=== PATIENT | male | born 1945 | race Caucasian/White ===

== ENCOUNTER → 2016-11-20 | Outpatient (CLI) | payer OTHER | LOC: BMCIMAGING 09:35 | PROVIDERS: ATTEND Internal Medicine Endocrinology, Diabetes & Metabolism | DX: Z13.820 Encounter for screening for osteoporosis (principal); M81.0 Age-related osteoporosis without current pathological fracture ==

== ENCOUNTER → 2017-07-11 | Outpatient (CLI) | payer OTHER | LOC: BMCIMAGING 13:11 | PROVIDERS: ATTEND Internal Medicine | DX: R05 Cough (principal) ==

== ENCOUNTER 2017-07-21 12:52 | Emergency (ER) | payer OTHER ==
[2017-07-21 13:03] VITALS: RESP 17; TEMP 97.5; O2SAT 98
--- NOTE | 2017-07-21 13:15 | EDPHY ---
H & P Stated Complaint: fell running inj l ribs and l elbow/denies loc or neck pain Time Seen by Provider: 07/21/17 13:05 HPI/ROS: CHIEF COMPLAINT: Rib pain, left elbow pain following mechanical fall HISTORY OF PRESENT ILLNESS: Patient presents to the ED with complaints of mild left rib pain and moderate left elbow pain following a mechanical fall that occurred earlier today while running. The patient did not strike his head or lose consciousness. He is not anticoagulated. He denies any headache or cervical spine pain. He did sustain an abrasion to his left leg. He is able to ambulate without discomfort. He denies any low back pain. He denies any associated numbness or weakness. His symptoms are worsened with attempted movement. REVIEW OF SYSTEMS: A comprehensive 10 point review of systems is otherwise negative aside from elements mentioned in the history of present illness. Source: Patient Exam Limitations: No limitations - Personal History Current Tetanus/Diphtheria Vaccine: Yes - Medical/Surgical History Hx Asthma: No Hx Chronic Respiratory Disease: No Hx Diabetes: No Hx Cardiac Disease: Yes Hx Renal Disease: No Hx Cirrhosis: No Hx Alcoholism: No Hx HIV/AIDS: No Hx Splenectomy or Spleen Trauma: No Other PMH: osteoporosis/pre diabetic/htn - Social History Smoking Status: Never smoked - Physical Exam Exam: General Appearance: Alert, no distress Head: Atraumatic Eyes: Pupils equal, round, reactive ENT, Mouth: No hemotympanum, no oral trauma Neck: Nontender, trachea midline Respiratory: Minimal left rib tenderness, no subcutaneous emphysema, lungs clear to auscultation bilaterally Cardiovascular: Regular rate and rhythm Abdomen: Abdomen is soft and nontender, pelvis stable Skin: Abrasion left lower extremity Back: No midline T/L/S pain Extremities: Tenderness to palpation over the left olecranon, mild soft tissue swelling, no laceration Neurological: A&Ox3, normal motor function, normal sensory exam, GCS 15 Constitutional: Initial Vital Signs Temperature (C) 36.4 C 07/21/17 12:59 Heart Rate 73 07/21/17 12:59 Respiratory Rate 17 07/21/17 12:59 Blood Pressure 150/74 H 07/21/17 12:59 O2 Sat (%) 98 07/21/17 12:59 O2 Delivery Mode Room Air Allergies/Adverse Reactions: No Known Allergies Allergy (Unverified 12/30/17 12:57) Home Medications: Medication Instructions Recorded Htn Med 07/21/17 Hydrocodone/APAP 5/325 [Highland 1 - 2 each PO Q6 PRN #20 tab 07/21/17 5/325] Metformin HCl 07/21/17 Simvastatin 07/21/17 Medical Decision Making - Diagnostics Imaging Results: Imaging Impressions Elbow X-Ray 07/21/17 13:09 Impression: Complex fracture of the proximal ulna. Chest X-Ray 07/21/17 13:17 Impression: Nothing acute identified. ED Course/Re-evaluation: ED course: The patient presents the ED for evaluation of left elbow and chest wall pain following a fall while running. The patient arrived and was noted to be neurovascularly intact. The patient was taken for x-rays of his test and elbow which demonstrate a minimally displaced olecranon fracture without evidence of dislocation. Chest x-ray demonstrates no evidence of an obvious rib fracture or pneumothorax by my interpretation. The patient was placed in a posterior Ortho Glass splint. I re-evaluated the patient at 2:00 p.m.. He is neurologically intact. I have reviewed with him his x-ray findings. He will be referred to our on-call orthopedic surgeon for further evaluation of his elbow fracture. The patient is discharged home with customary fracture care aftercare instructions. He is provided a prescription for Highland. He is advised to ice the extremity frequently over the next several days. Differential Diagnosis: Differential diagnosis considered includes elbow fracture, dislocation, neurovascular injury, rib fracture, pneumothorax Departure - Departure Disposition: Home, Routine, Self-Care Clinical Impression: Olecranon fracture Condition: Good Instructions: Elbow Fracture (ED) Additional Instructions: 1. Wear splint until seen by Orthopedic surgery. 2. Please contact the orthopedic surgeon at [facility] for further evaluation of your fracture. 3. Ice 20-30 minutes at a time 4 to 5 times a day for the next several days. 4. Take Ibuprofen or Motrin 600 mg by mouth three times a day. 5. Highland as needed for severe pain Referrals: Brant Evans MD [Medical Doctor] - As per Instructions Prescriptions: Hydrocodone/APAP 5/325 [Highland 5/325] 1 - 2 each PO Q6 PRN #20 tab PRN Reason: for pain
[2017-07-21 14:49] VITALS: BP 141/74; PULSE 71
== END 2017-07-21 14:48 | disposition home or self-care (01) ==
DX: S52.022A Displaced fracture of olecranon process without intraarticular extension of left ulna, initial encounter for closed fracture (principal); I10 Essential (primary) hypertension; W18.39XA Other fall on same level, initial encounter; Y99.8 Other external cause status; Y93.02 Activity, running
CPT/HCPCS: 71010; 73080; 99284; A4565

== ENCOUNTER 2017-07-27 05:36 | Day surgery (SDC) | payer OTHER, MEDICARE ==
[~2017-07-27 05:36] MED LIST: ceFAZolin 2 GM/SWFI 2 GM/20 ML SYR IVP ONE
[2017-07-27] MEDS ORDERED: ceFAZolin 2 GM/SWFI 2 GM/20 ML SYR IVP ONE (05:53)
[2017-07-27] MEDS ORDERED: LR 1,000 ML IV ONE (05:54)
[2017-07-27 06:04] VITALS: PULSE 56
[2017-07-27] MEDS ORDERED: LIDOCAINE 1% 2 ML INJ ID PRN (06:14)
--- NOTE | 2017-07-27 06:54 | PDHPUP ---
History & Physical Update H&P update statement: This history and physical update is based on an assessment of the patient which was completed after admission or registration (within 24 hours), but prior to the surgery/procedure. H&P update: H&P reviewed & patient examined, no change in patient's condition since H&P completed
[2017-07-27] MEDS ORDERED: BUPIVACAINE 0.5% 30 ML SDV ONE (07:00)
[2017-07-27] MEDS ORDERED: MIDAZOLAM 2 MG/2 ML VIAL ONE (07:08)
[2017-07-27] MEDS ORDERED: MIDAZOLAM 2 MG/2 ML VIAL IVP ONE (07:13)
--- NOTE | 2017-07-27 07:14 | PDANEPAE ---
ANE History of Present Illness left distal radius fracture ANE Past Medical History - Cardiovascular History Hx Hypertension: Yes Hx Arrhythmias: No Hx Chest Pain: No Hx Coronary Artery / Peripheral Vascular Disease: No Hx CHF / Valvular Disease: No Hx Palpitations: No Cardiovascular History Comment: HX-MITRAL VALVE PROLAPSE. NO SOB. NO CP - Pulmonary History Hx COPD: No Hx Asthma/Reactive Airway Disease: No Hx Recent Upper Respiratory Infection: No Hx Oxygen in Use at Home: No Hx Sleep Apnea: No Sleep Apnea Screening Result - Last Documented: Negative Pulmonary History Comment: CHILDHOOD ASTHMA THROUGH 20s - Neurologic History Hx Cerebrovascular Accident: No Hx Seizures: No Hx Dementia: No - Endocrine History Hx Diabetes: No Endocrine History Comment: PRE-DIABETIC - Renal History Hx Renal Disorders: No - Liver History Hx Hepatic Disorders: No - Neurological & Psychiatric Hx Hx Neurological and Psychiatric Disorders: No - Cancer History Hx Cancer: No - Congenital Disorder History Hx Congenital Disorders: No - GI History Hx Gastrointestinal Disorders: Yes Gastrointestinal History Comment: POSS ACID REFLUX W/COUGH - Other Health History Other Health History: NEG - Chronic Pain History Chronic Pain: No - Surgical History Prior Surgeries: NASAL POLYPS. EYELID SURGERY. COLONOSCOPY ANE Review of Systems Review of Systems: - Exercise capacity METS (RN): 5 METS ANE Patient History - Allergies Allergies/Adverse Reactions: No Known Allergies Allergy (Unverified 07/21/17 12:57) - Home Medications Home Medications: Metformin HCl 07/21/17 [Last Taken 07/26/17] Simvastatin 07/21/17 [Last Taken 07/26/17] Amlodipine Besylate 07/26/17 [Last Taken 07/27/17 04:30] Herbals/Supplements -Info Only 07/26/17 [Last Taken 07/26/17] Lisinopril 07/26/17 [Last Taken 07/27/17 04:30] Omeprazole 07/26/17 [Last Taken 07/27/17 04:30] Prolia 07/26/17 [Last Taken 1 Month Ago ~06/26/17] Viagra 07/26/17 [Last Taken 07/20/17] - NPO status NPO Since - Liquids (Date): 07/27/17 NPO Since - Liquids (Time): 04:30 NPO Since - Solids (Date): 07/26/17 NPO Since - Solids (Time): 19:00 - Smoking Hx Smoking Status: Never smoked - Family Anes Hx Family Hx Anesthesia Complications: NEG ANE Labs/Vital Signs - Labs Result Diagrams: 07/27/17 06:35 - Vital Signs Blood Pressure: 149/68 Heart Rate: 56 Respiratory Rate: 16 O2 Sat (%): 96 Height: 177.8 cm Weight: 72.575 kg ANE Physical Exam - Airway Neck exam: FROM Mallampati Score: Class 2 Mouth exam: normal dental/mouth exam - Pulmonary Pulmonary: no respiratory distress - Cardiovascular Cardiovascular: regular rate and rhythym - ASA Status ASA Status: II ANE Anesthesia Plan Anesthesia Plan: general endotracheal anesthesia, GA w LMA Regional Anesthesia: supraclavicular BP NB
[2017-07-27] MEDS ORDERED: PROPOFOL 200 MG/20 ML VIAL ONE ×2 (07:16→07:17)
[2017-07-27] MEDS ORDERED: fentaNYL 100 MCG/2 ML INJ ONE ×3 (07:16→11:02)
[2017-07-27] MEDS ORDERED: ROPIVACAINE HCL 150 MG/30 ML INJ ONE (07:16)
[2017-07-27] MEDS ORDERED: NALOXONE HCL 0.4 MG/ML INJ IVP PRN (08:09)
[2017-07-27] MEDS ORDERED: OXYCODONE/APAP 5/325 TAB PO PRN (08:09)
[2017-07-27] MEDS ORDERED: PROMETHAZINE HCL 25 MG/ML INJ IVP PRN (08:09)
[2017-07-27] MEDS ORDERED: ONDANSETRON 4 MG/2 ML VIAL IVP PRN (08:09)
[2017-07-27] MEDS ORDERED: HYDROmorphONE/DILAUDID 1 MG/ML INJ IVP PRN (08:09)
[2017-07-27] MEDS ORDERED: DEXAMETHASONE 4 MG/ML VIAL ONE (10:30)
[2017-07-27] MEDS ORDERED: epHEDrine SULFATE 10 MG/ML SYR ONE (10:30)
[2017-07-27] MEDS ORDERED: ONDANSETRON 4 MG/2 ML VIAL ONE (10:30)
--- NOTE | 2017-07-27 10:38 | POSTANESTH ---
Post Anesthetic Evaluation Cardiovascular Status: Normal, Stable Respiratory Status: Normal, Stable Level of Consciousness/Mental Status: Can Participate in Eval Pain Control: Adequate, Prn Tx Ordered Nausea/Vomiting Control: Adequate, Prn Tx Ordered Complications Possibly Related to Anesthesia: None Noted
[2017-07-27] MEDS: fentaNYL 100 MCG/2 ML INJ IVP PRN ×2 (11:05→11:20)
[2017-07-27] MEDS ORDERED: OXYCODONE/APAP 5/325 TAB ONE (12:00)
[2017-07-27 12:38] VITALS: BP 124/62; RESP 16; TEMP 97.5; O2SAT 96
--- NOTE | 2017-07-29 13:07 | GOP ---
[f rep st] OPERATIVE REPORT DATE OF OPERATION: 07/27/2017 SURGEON: Brant Evans MD ANESTHESIA: General with a supraclavicular block. PREOPERATIVE DIAGNOSIS: Left olecranon fracture. POSTOPERATIVE DIAGNOSIS: Left olecranon fracture. PROCEDURE PERFORMED: Left olecranon open reduction, internal fixation. FINDINGS: ESTIMATED BLOOD LOSS: 15 cc. INDICATIONS: This patient presented to my clinic this week after a fall onto his left elbow several days prior. He tripped and fell while driving. He was seen at an urgent care facility. X-rays were taken. The x-rays were reviewed by me. The x-rays showed a displaced olecranon fracture with a butterfly fragment. This is an unstable type of olecranon fracture. Operative treatment is indicated. The risks and benefits of operative versus nonoperative were discussed with the patient. Risks of surgery include pain, bleeding, infection , damage to the surrounding structures, stiffness, nonunion, delayed union, wound healing complications, need for further surgeries including implant removal, posttraumatic arthritis. He understood the risks and wished to proceed. DESCRIPTION OF PROCEDURE: The patient was seen in the preoperative holding area. He was given the opportunity to ask more questions. All of his questions were answered. Consent was signed. Surgical site was marked. He was then taken to the operative suite. Care was taken to transfer the patient to the operating room table. General anesthesia was induced by the anesthesia team. A time-out was called including surgical and anesthesia teams confirming the surgical site and procedure to be performed. 2 g of Ancef were given prior to incision. After induction of anesthesia, the patient was carefully placed into the lateral decubitus position with the left side up. Great care was taken to ensure that all bony prominences were padded in the lateral decubitus position. An axillary roll was used. The left arm was placed on a foam bump. The left upper extremity was prepped and draped in the usual sterile fashion. A sterile tourniquet was placed. An Esmarch was used to examine the left upper extremity. A tourniquet was inflated to 250 mmHg. A standard curvilinear incision was made over the olecranon for a standard posterior approach to the olecranon. This was curved radially, carefully dissected down through the skin. There were small superficial cutaneous nerves that were preserved, dissected down to the level of the fascia between the ECU and FCU. This was split to visualize the subcutaneous border of the ulna. The triceps tendon was visualized. The fracture was visualized. The periosteum was removed for 2 or 3 mm along the fracture site to visualize it. The fracture was booked open. The area was irrigated to clean it out. Provisional reduction was obtained with a pointed large yeager clamp. Another K-wire was used to hold the smaller comminuted fragment attached to the triceps tendon in place. After reduction was obtained, a plate was used. The plate had 2 holes in the shaft. This plate was placed provisionally, check under fluoroscopy, held with K-wires. Then, the plate was sucked down to the bone with 3.5 cortical screw. The position of the plate was checked in the reduction. When we were happy with the reduction, the proximal locking screws were placed. These were placed to ensure that they were out of the joint. Then 2 more distal shaft locking screws were placed. Screw length was checked under fluoroscopy and these screws were placed. The wound was irrigated copiously. Prior to closing, a 5- 0 FiberWire was placed through the tricep tendon and then through a plate hole in a tension band-type fashion to supplement fixation. At this point, the fascia was closed over the plate and the tendon split was closed with Vicryl as well. The _skin was then closed in layers, the final layer being a running 3-0 nylon. A dressing was applied sterilely. At this point, I noticed that the patient did not have full rotation of the forearm. An x-ray was taken, several different oblique views were taken, which showed one of the screws proud in the PRUJ. This was likely interfering with rotation. The arm was then very carefully reprepped in a sterile fashion. Antibiotics were redosed. The distal aspect of the wound was opened. The screw that was long was removed and it was replaced with a screw that was much shorter. At this point, the patient had smooth full rotation of the forearm. Final x-rays were then again taken confirming the anatomic reduction and correct screw length placement. The closure was then again performed in the same fashion. A sterile dressing was applied. A posterior slab splint was applied in 90 degrees. He was awakened from general anesthesia in stable condition and taken to the PACU in stable condition. IMPLANTS USED: Arlettie [id number] variable angle stainless steel olecranon plating system. POSTOPERATIVE CONDITION: Stable. POSTOPERATIVE PLAN: The patient will follow up in clinic in 2 weeks for removal of the sutures. An appointment with a hand therapist will be made for about a week to replace his splint with a removable splint at 90 degrees within the allowed gentle range of motion. /[id number]/MODL MTDD
== END 2017-07-27 12:39 | disposition home or self-care (01) ==
LOC: FSGY 05:36
PROVIDERS: ATTEND Orthopaedic Surgery Hand Surgery
PROC: 0PSL04Z Reposition Left Ulna with Internal Fixation Device, Open Approach (ICD-10-PCS; principal; 2017-07-27 07:15)
DX: S52.022A Displaced fracture of olecranon process without intraarticular extension of left ulna, initial encounter for closed fracture (principal); I34.1 Nonrheumatic mitral (valve) prolapse; E78.5 Hyperlipidemia, unspecified; M81.0 Age-related osteoporosis without current pathological fracture; I10 Essential (primary) hypertension; R73.03 Prediabetes; W01.0XXA Fall on same level from slipping, tripping and stumbling without subsequent striking against object, initial encounter; Y93.02 Activity, running; Y92.480 Sidewalk as the place of occurrence of the external cause; Y99.8 Other external cause status; Z82.49 Family history of ischemic heart disease and other diseases of the circulatory system; Z82.62 Family history of osteoporosis
CPT/HCPCS: C1713; J0690; J1100; J2250; J2405; J2704; J2795; J3010

== ENCOUNTER → 2017-08-09 | Outpatient (CLI) | payer OTHER, MEDICARE | LOC: BMCIMAGING 08:32 | PROVIDERS: ATTEND Orthopaedic Surgery Hand Surgery | DX: S52.025D Nondisplaced fracture of olecranon process without intraarticular extension of left ulna, subsequent encounter for closed fracture with routine healing (principal) ==

== ENCOUNTER → 2017-09-12 | Outpatient (CLI) | payer OTHER, MEDICARE | LOC: BMCIMAGING 09:54 | PROVIDERS: ATTEND Orthopaedic Surgery Hand Surgery | DX: S52.022D Displaced fracture of olecranon process without intraarticular extension of left ulna, subsequent encounter for closed fracture with routine healing (principal) ==

== ENCOUNTER 2018-11-06 12:08 | Day surgery (SDC) | payer OTHER ==
[2018-11-06] MEDS ORDERED: NS 500 ML IV ONE (12:14)
[2018-11-06] MEDS ORDERED: fentaNYL 100 MCG/2 ML INJ IVP ONE (12:14)
[2018-11-06] MEDS ORDERED: MIDAZOLAM 2 MG/2 ML VIAL IVP ONE (12:14)
[2018-11-06] MEDS ORDERED: BENZOCAINE UNIT DOSE SPRAY HURRICAINE MM ONE (12:14)
--- NOTE | 2018-11-06 13:22 | PDANEPAE ---
ANE History of Present Illness here for NADYA/CV ANE Past Medical History - Cardiovascular History Hx Hypertension: Yes Hx Arrhythmias: No Hx Chest Pain: No Hx Coronary Artery / Peripheral Vascular Disease: No Hx CHF / Valvular Disease: No Hx Palpitations: No Cardiovascular History Comment: HX-MITRAL VALVE PROLAPSE. NO SOB. NO CP - Pulmonary History Hx COPD: No Hx Asthma/Reactive Airway Disease: No Hx Recent Upper Respiratory Infection: No Hx Oxygen in Use at Home: No Hx Sleep Apnea: No Pulmonary History Comment: CHILDHOOD ASTHMA THROUGH 20s - Neurologic History Hx Cerebrovascular Accident: No Hx Seizures: No Hx Dementia: No - Endocrine History Hx Diabetes: No Endocrine History Comment: PRE-DIABETIC - Renal History Hx Renal Disorders: No - Liver History Hx Hepatic Disorders: No - Neurological & Psychiatric Hx Hx Neurological and Psychiatric Disorders: No - Cancer History Hx Cancer: No - Congenital Disorder History Hx Congenital Disorders: No - GI History Hx Gastrointestinal Disorders: Yes Gastrointestinal History Comment: POSS ACID REFLUX W/COUGH - Other Health History Other Health History: NEG - Chronic Pain History Chronic Pain: No - Surgical History Prior Surgeries: NASAL POLYPS. EYELID SURGERY. COLONOSCOPY ANE Review of Systems Review of systems is: negative Review of Systems: - Exercise capacity Exercise capacity: >=4 METS ANE Patient History - Allergies Allergies/Adverse Reactions: No Known Allergies Allergy (Unverified 07/21/17 12:57) - Home Medications Home medications: home medication list seen and reviewed Home Medications: Metformin HCl 07/21/17 [Last Taken 11/05/18 07:00] Simvastatin 07/21/17 [Last Taken 11/05/18 21:00] Amlodipine Besylate 5 mg PO DAILY 07/26/17 [Last Taken 11/06/18 07:00] Herbals/Supplements -Info Only 07/26/17 [Last Taken 11/06/18 07:00] Lisinopril 10 mg PO DAILY 07/26/17 [Last Taken 11/06/18 07:00] Prolia 07/26/17 [Last Taken 1 Month Ago ~06/26/17] Viagra 07/26/17 [Last Taken 07/20/17] Aspirin 81 mg PO DAILY 11/06/18 [Last Taken 11/05/18 07:00] - NPO status NPO Status: no food or drink >8 hours - Smoking Hx Smoking Status: Never smoked - Family Anes Hx Family Hx Anesthesia Complications: NEG ANE Labs/Vital Signs - Vital Signs Vital Signs: reviewed preoperatively; see RN documention for details Height: 178 cm Weight: 72.6 kg ANE Physical Exam - Airway Neck exam: FROM Mallampati Score: Class 1 Mouth exam: normal dental/mouth exam - Pulmonary Pulmonary: no respiratory distress - Cardiovascular Cardiovascular: regular rate and rhythym - ASA Status ASA Status: II ANE Anesthesia Plan Anesthesia Plan: GA with mask
[2018-11-06] MEDS ORDERED: PROPOFOL/EMULSION 500 MG/50 ML BOTTLE IV ONE (13:41)
--- NOTE | 2018-11-09 03:24 | CPR ---
[f rep st] NONINVASIVE CARDIAC PROCEDURE REPORT DATE OF PROCEDURE: 11/06/2018 PROCEDURE PERFORMED: Transesophageal echocardiogram. INDICATIONS FOR PROCEDURE: Mitral valve prolapse and mitral regurgitation. DESCRIPTION OF PROCEDURE: After informed consent was obtained for sedation with anesthesia as well a s transesophageal echocardiogram, the patient was brought to the cardiovascular lab where he was syd carlos with propofol. Bite block was in place. NADYA probe was passed without incident. NADYA probe was u sed to take images of the left-sided heart structures in detail particularly focusing on the mitral v alve. Images were obtained in 3D as well. Please see complete echo report for full details. CONCLUSION: 1. Mitral valve prolapse with severe mitral regurgitation. 2. Recommend consultation with Dr. Derrikc Nava for further evaluation of possible surgical minimally invasive mitral valve repair. /[id number]/MODL
== END 2018-11-06 15:45 | disposition home or self-care (01) ==
LOC: FCATH 12:08
PROVIDERS: ATTEND Internal Medicine Cardiovascular Disease
PROC: B245ZZ4 Ultrasonography of Left Heart, Transesophageal (ICD-10-PCS; principal; 2018-11-06)
DX: I34.1 Nonrheumatic mitral (valve) prolapse (principal); I34.0 Nonrheumatic mitral (valve) insufficiency; I10 Essential (primary) hypertension; R73.03 Prediabetes
CPT/HCPCS: J2704

== ENCOUNTER → 2018-11-22 | Outpatient (CLI) | payer OTHER | LOC: BMCIMAGING 10:19 | PROVIDERS: ATTEND Internal Medicine Endocrinology, Diabetes & Metabolism | DX: Z13.820 Encounter for screening for osteoporosis (principal); M81.0 Age-related osteoporosis without current pathological fracture ==

== ENCOUNTER 2018-11-28 07:25 | Day surgery (SDC) | payer OTHER ==
[2018-11-28] MEDS ORDERED: FAMOTIDINE 20 MG TAB PO ONE (07:29)
[2018-11-28] MEDS ORDERED: ASPIRIN EC 325 MG TAB PO ONE ×2 (07:29→07:52)
[2018-11-28] MEDS ORDERED: NS 1,000 ML IV ONE (07:29)
[2018-11-28] MEDS ORDERED: diphenhydrAMINE 25 MG CAP PO ONE ×2 (07:29→07:52)
[2018-11-28] MEDS ORDERED: DIAZEPAM 5 MG TAB PO ONE (07:29)
[2018-11-28] MEDS ORDERED: DIAZEPAM 5 MG TAB ONE (07:52)
[2018-11-28] MEDS ORDERED: FAMOTIDINE 20 MG TAB ONE (07:52)
[2018-11-28 08:12] LABS: PLATELET COUNT 272 10^3/uL (150-400)
--- NOTE | 2018-11-28 08:13 | CPEKG ---
Test Reason : OPEN Blood Pressure : / mmHG Vent. Rate : 054 BPM Atrial Rate : 053 BPM P-R Int : 195 ms QRS Dur : 150 ms QT Int : 462 ms P-R-T Axes : 054 221 022 degrees QTc Int : 438 ms Sinus rhythm Right bundle branch block Confirmed by Asher Santiago ([id number]) on 11/28/2018 8:13:28 AM Referred By: Cooper Watson Confirmed By:Asher Santiago
[2018-11-28 08:20] LABS: INR 0.95 (0.83-1.16); PROTIME(PATIENT) 12.3 SEC (12.0-15.0)
[2018-11-28] MEDS ORDERED: LIDOCAINE 1% 300 MG/30 ML SDV ONE (08:48)
[2018-11-28] MEDS ORDERED: fentaNYL 100 MCG/2 ML INJ ONE (08:49)
[2018-11-28] MEDS ORDERED: IOPAMIDOL (ISOVUE-370) 150 ML BTL IV ONE (08:49)
[2018-11-28] MEDS ORDERED: VERAPAMIL 5 MG/2 ML VIAL ONE (08:49)
[2018-11-28] MEDS ORDERED: MIDAZOLAM 2 MG/2 ML VIAL ONE (08:49)
[2018-11-28] MEDS ORDERED: HEPARIN 10,000 UNIT/10 ML MDV (1,000 UNIT/ML) ONE (08:49)
--- NOTE | 2018-11-28 09:01 | PDPROPOC ---
Sedation Plan of Care Sedation Plan of Care: vital signs stable, mental status noted, patient educated of risks, benefits, alternatives, patient can tolerate sedation ASA Classification: ASA 2 Planned drugs: fentanyl, midazolam Mallampati Score: Class 2 Mallampati Reference Image: Patient passed 3-3-2 rule?: Yes
[2018-11-28] MEDS ORDERED: ATROPINE SULFATE 1 MG/10 ML SYR IVP PRN (10:07)
[2018-11-28] MEDS ORDERED: HYDROCODONE/APAP 5/325 TAB PO PRN (10:07)
[2018-11-28] MEDS ORDERED: ONDANSETRON 4 MG/2 ML VIAL IVP PRN (10:07)
--- NOTE | 2018-11-28 10:20 | PDDXCAT ---
Diagnostic Cath Note - . 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 LAD: Minimal irregularity in the proximal LAD. LCX: Minimal irregularity in the proximal circumflex. RCA: Mild to moderate irregularity in the proximal to mid-RCA. EDP: 14 mmHg LVEF: 45% Wall motion: Mild global hypokinesis. - Findings-Right Heart Catheterization RA: 6 mmHg RV: 28/6 mmHg PA: 26/4/13 mmHg O2 sat 75.1% PAOP: 8 mmHg AO: 100/44/66 mmHg O2 sat 95.3% CO: 4.89 L/min CI: 2.57 L/min/sq mtr Complications: None Estimated blood loss: <50ml Closure method: Angioseal Assessment: 1) Mild coronary atherosclerosis. 2) Nonischemic cardiomyopathy with mildly reduced left ventricular systolic function. 3) Normal right heart pressures.
[2018-11-29] MEDS ORDERED: ATORVASTATIN CALCIUM 20 MG TAB PO SCH (09:00)
== END 2018-11-28 14:25 | disposition home or self-care (01) ==
LOC: FCATH 07:25
PROVIDERS: ATTEND Internal Medicine Interventional Cardiology
DX: I34.0 Nonrheumatic mitral (valve) insufficiency (principal); I10 Essential (primary) hypertension; E78.00 Pure hypercholesterolemia, unspecified
CPT/HCPCS: C1760; J1644; J2250; J3010; Q9967

== ENCOUNTER 2018-12-03 06:11 | Inpatient (IN) | payer OTHER ==
[~2018-12-03 06:11] MED LIST changes: +CARDIOPLEGIC SOLUTION 1,052.8 ML PF ONE; +DOBUTamine 500 MG in D5W 250 ML IV SCH; +DOBUTamine/DEXTROSE 250 ML IV SCH; +INSULIN REGULAR HUMAN 100 UNIT in NS 100 ML IV ONE; +MANNITOL 25% 12.5 GM/50 ML VIAL IVP ONE; +NOREPINEPHRINE BITARTRATE 16 MG in NS 250 ML IV ONE; +PHENYLEPHRINE HCL 50 MG in NS 250 ML IV ONE; -ceFAZolin 2 GM/SWFI 2 GM/20 ML SYR IVP ONE
[2018-12-03] MEDS ORDERED: LIDOCAINE 2% 100 MG/5 ML SYR ONE ×2 (06:21→07:32)
[2018-12-03] MEDS ORDERED: PROTAMINE SULFATE 50 MG/5 ML VIAL IVP ONE (06:21)
[2018-12-03] MEDS ORDERED: MILRINONE/DEXTROSE/100 ML BAG IV ONE (06:21)
[2018-12-03] MEDS ORDERED: AMINOCAPROIC ACID 5 GM/20 ML VIAL ONE (06:21)
[2018-12-03] MEDS ORDERED: NA BICARBONATE 50 MEQ/50 ML VIAL ONE (06:21)
[2018-12-03] MEDS ORDERED: ALBUMIN 5% 250 ML BOTTLE IV ONE ×3 (06:21→17:13)
[2018-12-03] MEDS ORDERED: CALCIUM CHLORIDE 1 GM/10 ML INJ ONE (06:21)
[2018-12-03] MEDS ORDERED: ADENOSINE 6 MG/2 ML VIAL ONE (06:22)
[2018-12-03] MEDS ORDERED: CITRATE DEXTROSE SOLN 500 ML BAG ONE (06:22)
[2018-12-03] MEDS ORDERED: niCARdipine/NACL/200 ML BAG IV ONE (06:22)
[2018-12-03] MEDS ORDERED: HEPARIN 10,000 UNIT/10 ML MDV (1,000 UNIT/ML) ONE (06:22)
[2018-12-03] MEDS ORDERED: DOPamine/DEXTROSE 400 MG/250 ML BAG IV ONE (06:22)
[2018-12-03] MEDS ORDERED: MAGNESIUM SULFATE 1 GM/2 ML VIAL ONE (06:22)
[2018-12-03] MEDS ORDERED: AMIODARONE HCL 150 MG/3 ML VIAL ONE (06:22)
[2018-12-03] MEDS ORDERED: NITROGLYCERIN/D5W 50 MG/250 ML BOTTLE IV ONE (06:23)
[2018-12-03] MEDS ORDERED: methylPREDNISolone SOD SUCC 1 GM/8 ML VIAL ONE (06:23)
[2018-12-03] MEDS ORDERED: ceFAZolin 1 GM VIAL ONE (06:23)
[2018-12-03] MEDS ORDERED: AMINOCAPROIC ACID 5 GM/20 ML VIAL IV ONE (06:51)
[2018-12-03] MEDS ORDERED: MUPIROCIN 2% 22 GM OINT NS ONE (06:51)
[2018-12-03] MEDS ORDERED: niCARdipine/NACL 200 ML IV ONE (06:51)
[2018-12-03] MEDS ORDERED: CITRATE DEXTROSE SOLN 500 ML BAG MISC ONE (06:51)
[2018-12-03] MEDS ORDERED: ceFAZolin 2 GM/DEXTROSE 100 ML IV ONE (06:51)
[2018-12-03] MEDS ORDERED: LR 1,000 ML IV ONE (06:53)
--- NOTE | 2018-12-03 07:01 | PDHPUP ---
History & Physical Update H&P update statement: This history and physical update is based on an assessment of the patient which was completed after admission or registration (within 24 hours), but prior to the surgery/procedure. H&P update: no change in patient's condition since H&P completed ([facility] w mild, noncritical CAD. TISSUE if replaced.)
[2018-12-03] MEDS ORDERED: MIDAZOLAM 2 MG/2 ML VIAL ONE (07:19)
[2018-12-03] MEDS ORDERED: MIDAZOLAM 2 MG/2 ML VIAL IVP ONE (07:20)
--- NOTE | 2018-12-03 07:20 | PDANEPAE ---
ANE History of Present Illness 73 yo for mvr ANE Past Medical History - Cardiovascular History Hx Hypertension: Yes Hx Arrhythmias: No Hx Chest Pain: No Hx Coronary Artery / Peripheral Vascular Disease: No Hx CHF / Valvular Disease: No Hx Palpitations: No Cardiovascular History Comment: HX-MITRAL VALVE PROLAPSE. NO SOB. NO CP - Pulmonary History Hx COPD: No Hx Asthma/Reactive Airway Disease: No Hx Recent Upper Respiratory Infection: No Hx Oxygen in Use at Home: No Hx Sleep Apnea: No Sleep Apnea Screening Result - Last Documented: Positive Pulmonary History Comment: CHILDHOOD ASTHMA - Neurologic History Hx Cerebrovascular Accident: No Hx Seizures: No Hx Dementia: No - Endocrine History Hx Diabetes: No Endocrine History Comment: PRE-DIABETIC - Renal History Hx Renal Disorders: No - Liver History Hx Hepatic Disorders: No - Neurological & Psychiatric Hx Hx Neurological and Psychiatric Disorders: No - Cancer History Hx Cancer: No - Congenital Disorder History Hx Congenital Disorders: Yes Congenital History Comment: MOTHER AND SON HAS MITRAL VALVE DISEASE - GI History Hx Gastrointestinal Disorders: Yes Gastrointestinal History Comment: ACID REFLUX - Other Health History Other Health History: ED - Chronic Pain History Chronic Pain: Yes (LEFT ELBOW) - Surgical History Prior Surgeries: NASAL POLYPS. EYELID SURGERY. COLONOSCOPY. LEFT ELBOW FX REPAIR 2018. NADYA ANE Review of Systems Review of Systems: - Exercise capacity METS (RN): 5 METS ANE Patient History - Allergies Allergies/Adverse Reactions: No Known Allergies Allergy (Verified 11/25/18 10:17) - Home Medications Home Medications: Herbals/Supplements -Info Only 1 ea PO DAILY 07/26/17 [Last Taken 12/02/18] Lisinopril [Zestril 10 mg (*)] 10 mg PO DAILY 07/26/17 [Last Taken 12/02/18] amLODIPine BESYLATE [Norvasc 5 mg (*)] 5 mg PO DAILY 07/26/17 [Last Taken ] Aspirin [Aspirin 81mg (*)] 81 mg PO DAILY 11/06/18 [Last Taken 12/02/18] Cholecalciferol Vit D3 [Vitamin D3 2000 units tab (OTC)] 2,000 units PO DAILY [Last Taken 12/02/18] Melatonin [Melatonin 3 MG (*)] 3 mg PO HS PRN 11/25/18 [Last Taken 12/02/18] Multivitamins [Multivitamin (*)] 1 each PO DAILY 11/25/18 [Last Taken 12/02/18] metFORMIN HCL [Glucophage 500 mg (*)] 500 mg PO DAILY 11/25/18 [Last Taken 11/26 11:00] - NPO status NPO Status: no food or drink >8 hours NPO Since - Liquids (Date): 12/02/18 NPO Since - Liquids (Time): 18:00 NPO Since - Solids (Date): 12/02/18 NPO Since - Solids (Time): 18:00 - Smoking Hx Smoking Status: Never smoked - Family Anes Hx Family Hx Anesthesia Complications: NONE ANE Labs/Vital Signs - Vital Signs Blood Pressure: 135/68 Heart Rate: 55 Respiratory Rate: 16 O2 Sat (%): 97 Height: 5 ft 10 in Weight: 72.575 kg ANE Physical Exam - Airway Neck exam: FROM Mallampati Score: Class 2 Mouth exam: normal dental/mouth exam - Pulmonary Pulmonary: no respiratory distress - Cardiovascular Cardiovascular: regular rate and rhythym - ASA Status ASA Status: III ANE Anesthesia Plan Anesthesia Plan: general endotracheal anesthesia Lines/Monitors: arterial line, central line, NADYA Specialized Airway: double lumen tube
[2018-12-03] MEDS ORDERED: fentaNYL 100 MCG/2 ML INJ ONE (07:31)
[2018-12-03] MEDS ORDERED: REMIFENTANIL HCL 1 MG VIAL ONE ×2 (07:31→10:17)
[2018-12-03] MEDS ORDERED: PROPOFOL/EMULSION 500 MG/50 ML BOTTLE IV ONE ×2 (07:32→10:17)
[2018-12-03] MEDS ORDERED: HYDROmorphONE/DILAUDID 2 MG/ML INJ ONE (12:27)
--- NOTE | 2018-12-03 13:26 | POSTOPPROG ---
Post Op Note Date of Operation: 12/03/18 Surgeon: Alfonso Nava Assistant: Teressa Anesthesiologist: Sudeep Anesthesia: GET(General Endotracheal) Pre-op Diagnosis: walker's MR Post-op Diagnosis: same Procedure: robotic assisted MVRepair Inf/Abcess present in the surg proc area at time of surgery?: No Depth: Organ Space EBL: 100-500 Complications: none Drains: Other (right pleural chest tube) Specimen(s): p2 MV
[2018-12-03] MEDS ORDERED: ONDANSETRON DISINTEGRATING 4 MG TAB PO PRN (13:28)
[2018-12-03] MEDS ORDERED: MEPERIDINE 25 MG/0.5 ML AMP IVP PRN (13:28)
[2018-12-03] MEDS ORDERED: SODIUM CL NASAL 45 ML BTL EACHNARE PRN (13:28)
[2018-12-03] MEDS ORDERED: METOCLOPRAMIDE 10 MG/2 ML VIAL IVP PRN (13:28)
[2018-12-03] MEDS ORDERED: CEPACOL LOZENGE PO PRN (13:28)
[2018-12-03] MEDS ORDERED: BISACODYL 10 MG SUPP PR PRN (13:28)
[2018-12-03] MEDS ORDERED: fentaNYL 100 MCG/2 ML INJ IVP PRN (13:28)
[2018-12-03] MEDS ORDERED: PANTOPRAZOLE SODIUM 40 MG VIAL IVP ONE (13:28)
[2018-12-03] MEDS ORDERED: MAGNESIUM HYDROXIDE 30 ML UDCUP PO PRN (13:28)
[2018-12-03] MEDS ORDERED: ONDANSETRON 4 MG/2 ML VIAL IVP PRN (13:28)
[2018-12-03] MEDS ORDERED: D50W 25 GM/50 ML SYR IVP PRN (13:28)
[2018-12-03] MEDS ORDERED: POTASSIUM Cl (KCl) 50 ML IV PRN (13:28)
[2018-12-03] MEDS ORDERED: ACETAMINOPHEN 650 MG SUPP PR PRN (13:28)
[2018-12-03] MEDS ORDERED: NS 1,000 ML IV SCH (13:30)
[2018-12-03] MEDS ORDERED: INSULIN REGULAR HUMAN 100 UNIT in NS 100 ML IV SCH (13:30)
[2018-12-03] MEDS: ALBUMIN 5% 250 ML IV PRN ×4 (14:28→18:15)
--- NOTE | 2018-12-03 14:54 | GOP ---
[f rep st] OPERATIVE REPORT DATE OF OPERATION: 12/03/2018 SURGEON: Alfonso Naav MD BEAMING MACHINE OPERATOR: Palmer Gannon P.A.-c. PREOPERATIVE DIAGNOSIS: 1. Severe mitral regurgitation. 2. Mild pulmonary hypertension. POSTOPERATIVE DIAGNOSIS: 1. Severe mitral regurgitation. 2. Mild pulmonary hypertension. PROCEDURE PERFORMED: Robotic assisted mitral valve repair with resection of the P2 portion of the po sterior leaflet and reconstruction and annuloplasty with a 36 mm Physio ring. FINDINGS: The pericardial space was free. There were adhesions in the right pleural space. The cash ve demonstrated a large anterior leaflet with good support. There was also massive posterior leaflet with prolapse in the P2 segment. Left ventricular function is normal. Coronary angiography reveals no significant disease. INDICATIONS: This 73-year-old gentleman has remained active, yet is experiencing increasing dyspnea on exertion. He has. He is unable to keep his exercise schedule and on echocardiography is found to have severe mitral regurgitation. The valve appears as a Drummond's type valve, but and there does ap pear to be prolapse of the second portion of the posterior leaflet. DESCRIPTION OF PROCEDURE: Patient was taken to the operating room and placed operating table in supi ne position. After induction of general anesthesia and double-lumen endotracheal tube intubation, pa tient was prepped and draped sterilely. We began by creating a utility port of 4 cm long in the 4th intercostal space on the right chest. Le ft, right and 3rd arms of the robot were placed through separate stab incisions, and then, we cutdown on the right common femoral artery; however, due to a hematoma in the area, we elected not to use th is vessel for cannulation. We next then cut down on the left side. The artery here was good quality 6 mm vessel. We then accessed the right subclavian vein and heparinized the patient. A cannula gra ft was created using an 8 mm Hemashield graft and this was sewn end-to-side to the left common femora l artery with a running 4-0 Prolene. Having completed this, we then attempted to access the left common femoral vein. We connected a wire to pass into the heart so we went back to the right side, dissected out the vein, and then accessed the heart with a wire from the right common femoral vein without difficulty. We then placed the long 25-Comoran venous sheath into the right atrium. The robotic system was brought up and docked. Cardi opulmonary bypass was instituted. We began by opening the pericardium. We placed the aortic root vent, and next, the transthoracic crown ceramist ss-clamp was applied, and the heart was arrested with 1 L of [place] Nido solution. Left atrium was open ed. The valve was inspected. It was described above. We resected a large portion of the P2 segment of the posterior leaflet. The posterior leaflet was reconstructed with a 4-0 Pronova suture, and th en, the valve was sized to a 36 mm Physio ring. Sutures were placed around the anulus. The ring was seated without difficulty using the Cor-Knot device. Left atrium was then closed and the cross-clam p was removed. The patient resumed sinus rhythm spontaneously. Patient was then from card iopulmonary bypass and the post pump transesophageal echo shows a normally functioning mitral valve w ith no residual mitral regurgitation. Protamine was administered. The patient was decannulated. All the cannulation sites were doubly sec ured with Prolene suture, and after we placed a 36-Comoran chest tube, the ribs were reapproximated wi th #1 pericostal sutures. Subcutaneous tissue and skin were closed with running Vicryl suture. The patient tolerated this well and returned to the ICU in stable condition. /[id number]/MODL
[2018-12-03] MEDS: ceFAZolin 2 GM/DEXTROSE 100 ML IV SCH (17:15)
--- NOTE | 2018-12-03 17:30 | GCON ---
[f rep st] CONSULTATION PULMONARY CRITICAL CARE CONSULTATION DATE OF CONSULTATION: 12/03/2018 REFERRING PHYSICIAN: Mehran Gonsalez MD REASON FOR CONSULTATION: Postoperative ventilatory insufficiency status post open heart surgery. HISTORY OF PRESENT ILLNESS: The patient is a very healthy 73-year-old who is status post mitral valv e repair earlier today. The surgery was uncomplicated. Estimated blood loss was between 100 and 500 mL. The procedure was done with robotic assist. A chest tube was left in place on the right side. He was returned to the intensive care unit on the ventilator. He has slowly woken up. He is arousa ble at this point and responsive. Chest x-ray postoperatively looks good, without significant infilt rates or evidence of congestive heart failure. Weaning parameters are excellent. He is acceptable f or extubation. PAST MEDICAL HISTORY: Remarkable for his mitral valve disease, systemic hypertension, hyperlipidemia , and type 2 diabetes for which he takes metformin. DRUG ALLERGIES: None known. SOCIAL HISTORY: The patient is , with a very supportive . He is a never smoker. He has been quite active, has run multiple 10-Ks, marathons in the past, etc. He was signed up for the [email or web address] this year. FAMILY HISTORY: Noncontributory. REVIEW OF SYSTEMS: Unobtainable. PHYSICAL EXAMINATION: GENERAL: Reveals a gentleman who is resting comfortably on the ventilator. H e is on CPAP. He is arousable and responsive. VITAL SIGNS: Blood pressure is 101/46, heart rate 61 with sinus rhythm/bradycardia on the monitor, respiratory rate is 14. CVT is 4. Pulmonary artery p ressure is 28/15. Cardiac index is 3.2. SKIN: Pale. RESPIRATORY: Endotracheal tube is in place. The lungs are clear bilaterally, coarse on the right. Minimally invasive incisions are present on t he right. Chest tube is present with bloody drainage, no air leak. HEART: Regular in rate and rhyt hm to bradycardic. There are no obvious gallops. Valve sounds are good. ABDOMEN: Soft, nontender. Bowel sounds are diminished. : A Solis catheter is in place with adequate urine output. EXTREM ITIES: Unremarkable for edema. NEUROLOGIC: Examination is intact. DATABASE: Chest x-ray shows no significant infiltrates. The left hemidiaphragm is somewhat elevated with some possible atelectasis above. Postop hematocrit is 29. Arterial blood gas postoperatively on 60% FiO2 showed a pH of 7.34, pCO2 of 41, and pO2 of 82. Basic metabolic panel was within normal limits. Creatinine was 0.9 with a BUN of 15, glucose is 113. ASSESSMENT: 1. Status post minimally invasive mitral valve repair. 2. Postop respiratory insufficiency. He is doing well on CPAP and will be extubated. 3. Acute blood loss anemia. Hemoglobin and hematocrit will be followed. PLAN AND RECOMMENDATIONS: The patient will be kept in the intensive care unit. He will be extubated this evening. Dobutamine and dopamine will be used as needed. Appropriate pain control will be tricia ntained. Insulin by sliding scale coverage will be given. Pantoprazole will be given for GI prophyl axis. SCDs for DVT prophylaxis initially. Further plans and recommendations will be made based on his progress over the next 12 to 24 hours. /[id number]/MODL
[2018-12-03] MEDS: HYDROCODONE/APAP 5/325 TAB PO PRN ×2 (17:45→21:37)
[2018-12-03] MEDS: ACETAMINOPHEN 325 MG TAB PO PRN ×2 (17:46→21:36)
--- NOTE | 2018-12-03 17:56 | PDMN ---
Medical Necessity Medical necessity: 73 yo s/p mitral valve repair for regurg, [place] 15145, [facility] [place] or Repair, 5 days, [facility] IP only
--- NOTE | 2018-12-03 18:01 | POSTANESTH ---
Post Anesthetic Evaluation Cardiovascular Status: Normal, Stable Respiratory Status: Tx Decrease in SpO2 Level of Consciousness/Mental Status: Can Participate in Eval Pain Control: Adequate, Prn Tx Ordered Nausea/Vomiting Control: Adequate, Prn Tx Ordered Complications Possibly Related to Anesthesia: None Noted
[2018-12-03] MEDS ORDERED: NOREPINEPHRINE BITARTRATE 16 MG in NS 250 ML IV SCH (20:00)
[2018-12-03] MEDS: MUPIROCIN 2% 22 GM OINT NS SCH (20:42)
[2018-12-04] MEDS: ceFAZolin 2 GM/DEXTROSE 100 ML IV SCH ×3 (02:11→18:05)
[2018-12-04] MEDS: HYDROCODONE/APAP 5/325 TAB PO PRN (04:09)
[2018-12-04] MEDS: ACETAMINOPHEN 325 MG TAB PO PRN ×3 (04:10→16:06)
[2018-12-04 04:27] LABS: PLATELET COUNT 113 10^3/uL (150-400)
--- NOTE | 2018-12-04 07:28 | SOAPPROG ---
SOAP Progress Note Assessment/Plan: POD #1 s/p robotic-assisted MVRepair (36mm annuloplasty ring, p2 resection, sliding leaflet plasty) Drummond's MV w severe regurgitation s/p MVRepair -pre-op EF 60% w low normal with mild pHTN/LAE -anticoagulation with full dose ASA alone -routine postop TTE tomorrow Acute blood anemia - stable wo transfusions HTN/Hyperlipidemia/Prediabetes (A1c 6.1% 2017) - Home Norvasc, Lisinopril, Simvastatin, Metformin when appropriate DVT ppx -SCDs, early ambulation Dispo Discontinue FC/AL/[place] PTOT to eval & treat Discontinue chest tube Transfer to PCU later today Subjective: Back pain Objective: Vital Signs Temp Pulse Resp BP Pulse Ox 36.5 C 68 14 111/47 L 95 12/04/18 07:00 12/04/18 07:20 12/04/18 07:20 12/04/18 07:20 12/04/18 07:20 Laboratory Results 12/04/18 04:04 12/04/18 04:04 12/03/18 12/04/18 12/05/18 05:59 05:59 05:59 Intake Total 2378 Output Total 1535 Balance 843 - Physical Exam General Appearance: alert, no apparent distress Respiratory: lungs clear (grossly), other (rt pleural tube to pleurovac, serosang drainage, no air leak) Cardiac/Chest: regular rate, rhythm, other (rt thoracot and rt groin dressings CDI) Abdomen: normal bowel sounds, non-tender, soft Skin: warm/dry Extremities: swelling (trace) ICD10 Worksheet Patient Problems: Problems Problem Status Onset Acute blood loss anemia Acute S/P MVR (mitral valve repair) Acute
[2018-12-04] MEDS: POLYETHYLENE GLYCOL 3350 17 GM PKT PO PRN (10:14)
[2018-12-04] MEDS: ASPIRIN 325 MG TAB PO SCH (10:14)
[2018-12-04] MEDS: MUPIROCIN 2% 22 GM OINT NS SCH ×2 (10:14→21:02)
[2018-12-04] MEDS ORDERED: D50W 25 GM/50 ML SYR IVP PRN (12:26)
--- NOTE | 2018-12-04 12:32 | PDINTPN ---
[employer] [place] Progress Note Assessment/Plan: Assessment: Status post mitral valve repair Resolved postoperative respiratory insufficiency Type 2 diabetes Acute blood-loss anemia. Hematocrit stable at approximately 25 Plan: Will restart the patient's low-dose metformin. Sliding scale insulin will be ordered if needed. Probable transfer to PCU today. Per [facility]. I will sign off at this point. 20 min of critical care time spent directly with the patient. Discussed with nursing. Subjective: Doing well postoperatively. Up in the chair. No significant complaints. Chest pain much improved with chest tube out. Objective: Vital Signs Temp Pulse Resp BP Pulse Ox 98.3 C H 59 L 20 93/38 L 94 12/04/18 11:12 12/04/18 11:12 12/04/18 11:12 12/04/18 11:12 12/04/18 11:12 Laboratory Results 12/04/18 04:04 12/04/18 04:04 12/03/18 12/04/18 12/05/18 05:59 05:59 05:59 Intake Total 2378 Output Total 1535 Balance 843 CXR: No significant infiltrates present. Increased markings. Relative hypoventilation compared to yesterday's film Physical Exam - Physical Exam General Appearance: alert, no apparent distress EENT: PERRL/EOMI, other (On room air) Neck: normal inspection (No JVD) Respiratory: lungs clear (Anteriorly), decreased breath sounds (At bases, a few rales present), rales (Few), No rhonchi, No wheezing Cardiac/Chest: regular rate, rhythm, No gallop Abdomen: normal bowel sounds, non-tender, soft Skin: normal color, warm/dry Extremities: No pedal edema Neuro/Psych: no motor/sensory deficits, No cognition abnormalities ICD10 Worksheet Patient Problems: Problems Problem Status Onset Acute blood loss anemia Acute S/P MVR (mitral valve repair) Acute
[2018-12-04] MEDS: metFORMIN HCL 500 MG TAB PO SCH (12:36)
[2018-12-04] MEDS: PANTOPRAZOLE SODIUM 40 MG TAB PO SCH (12:36)
[2018-12-04] MEDS ORDERED: ASPIRIN 81 MG CHEWABLE TAB PO SCH (13:29)
[2018-12-04] MEDS ORDERED: ASPIRIN 81 MG CHEWABLE TAB TUBE PRN (13:29)
[2018-12-04] MEDS: traMADol 50 MG TAB PO PRN (16:06)
[2018-12-04] MEDS: INSULIN REGULAR HUMAN 100 UNIT/ML UNIT SC SCH ×2 (18:06→20:57)
[2018-12-04] MEDS: SODIUM CL NASAL 45 ML BTL EACHNARE SCH (20:58)
[2018-12-04] MEDS: SENNOSIDES/DOCUSATE SODIUM TAB PO SCH (21:01)
[2018-12-05] MEDS: ceFAZolin 2 GM/DEXTROSE 100 ML IV SCH (01:47)
[2018-12-05 06:13] LABS: PLATELET COUNT 118 10^3/uL (150-400)
--- NOTE | 2018-12-05 07:04 | SOAPPROG ---
SOAYLEEN Progress Note Assessment/Plan: POD #2: s/p robotic-assisted MV repair (36 mm annuloplasty ring, p2 resection, sliding leaflet plasty) Drummond's MV w severe regurgitation s/p repair - Anticoagulation with full dose ASA alone - Routine postop TTE today Acute post-op blood loss anemia - Stable w/o the need for transfusions Diabetes, well-controlled by A1c 6.0% - Continue Metformin Right pleural effusion - Chest tube removed 12/04 with apparent accumulation of fluid - U/S today with thoracentesis if warranted DVT prophylaxis -SCDs only Disposition - PCU - Plan for home w/o services Sunday Subjective: Has right-sided CP. Didn't sleep last night. Urinating is uncomfortable. Objective: Vital Signs Temp Pulse Resp BP Pulse Ox 37.0 C 66 16 102/58 L 93 12/05/18 04:00 12/05/18 04:00 12/05/18 04:00 12/05/18 04:00 12/05/18 04:00 Laboratory Results 12/05/18 06:06 12/05/18 06:06 12/04/18 12/05/18 12/06/18 05:59 05:59 05:59 Intake Total 2378 1492 Output Total 1535 700 Balance 843 792 Physical Exam - Physical Exam General Appearance: WD/WN, alert, no apparent distress EENT: No scleral icterus (R), No scleral icterus (L) Neck: normal inspection Respiratory: No respiratory distress Cardiac/Chest: regular rate, rhythm Abdomen: non-tender, soft, No distended Skin: normal color, warm/dry Extremities: No pedal edema Neuro/Psych: no motor/sensory deficits, alert, normal mood/affect, oriented x 3 ICD10 Worksheet Patient Problems: Problems Problem Status Onset Acute blood loss anemia Acute S/P MVR (mitral valve repair) Acute
[2018-12-05] MEDS ORDERED: LACTULOSE 20 GM/30 ML UDCUP PO PRN (07:44)
[2018-12-05] MEDS: INSULIN REGULAR HUMAN 100 UNIT/ML UNIT SC SCH ×4 (07:47→21:41)
[2018-12-05] MEDS ORDERED: LIDOCAINE 1% 300 MG/30 ML SDV ONE (07:58)
[2018-12-05] MEDS: PANTOPRAZOLE SODIUM 40 MG TAB PO SCH (08:07)
[2018-12-05] MEDS: metFORMIN HCL 500 MG TAB PO SCH (08:07)
[2018-12-05] MEDS: POLYETHYLENE GLYCOL 3350 17 GM PKT PO PRN (08:08)
[2018-12-05] MEDS: ASPIRIN 325 MG TAB PO SCH (08:08)
[2018-12-05] MEDS: SENNOSIDES/DOCUSATE SODIUM TAB PO SCH ×2 (08:08→20:49)
[2018-12-05] MEDS: MUPIROCIN 2% 22 GM OINT NS SCH (08:11)
--- NOTE | 2018-12-05 09:20 | ASMTCASEMG ---
Living Arrangements What is your living Answers: With Spouse arrangement? Who do you live with? Type Of Residence What kind of residence do Answers: House you live in? Discharge Plan Comments Coordination Status Comments Notes: Patient is a 73yo male who comes to [facility] for mitral valve repair and is doing well postoperatively. Both PT/OT are recommending home. Patient will likely discharge Sunday and is scheduled for transfer to PCU today.Patient's PCP is Adelia Moore. CM available should d/c needs arise. Date Signed: 12/05/2018 09:19 AM Electronically Signed By:Manuela Neri LCSW
[2018-12-05] MEDS: SODIUM CL NASAL 45 ML BTL EACHNARE SCH ×2 (10:47→21:02)
--- NOTE | 2018-12-05 17:18 | ECHO ---
[email or web address] [address] [address] Main: [phone] Echocardiography Examination Transthoracic Name: MERE RANDOLPH MR#: [id number] Study Date: 12/05/2018 Study Time: 11:28 AM Date of : 1945 Age: 73 year(s) Height: 177.8 cm (70 in.) Weight: 75.3 kg (166 lb.) BSA: 1.93 m2 Gender: Male Examination: Echo Contrast: Image Quality: Rhythm: Heart Rate: 64 bpm BP: 108 mmHg/47 mmHg Indication: Post Robotic MVR Procedure Staff Referring Physician: Nursing Home Physician: Juan Mcdonald RDCS Reading Physician: Misa Wu MD Requesting Provider: Ordering Physician: Palmer Gannon Indication: Post Robotic MVR Measurements Chambers AV/MV Label Value Normal Value Label Value Normal Value LVOT Vmax 1.19 m/s (0.7m/s - 1.1m/s) AV PGmax 8 mmHg LVOTd 2 cm (1.9cm - 2.1cm) AV PGmean 5 mmHg LVOT VTI 25.3 cm (18cm - 22cm) AV Vmax 1.41 m/s LVDd, 2D 4.7 cm (4.2cm - 5.9cm) DAVY (Vmax) 2.7 cm2 LVDs, 2D 3.2 cm (2.1cm - 4cm) DAVY (VTI) 2.6 cm2 IVSd, 2D 1 cm (0.6cm - 1.1cm) MV E Vmax 1.28 m/s LVPWd, 2D 1 cm (0.6cm - 1cm) MV A Vmax 1.17 m/s LVEF, 2D 61 % (54% - 74%) MV E/A 1.09 LVOT PGmean 3 mmHg MV DT 338 ms LVOT Vmean 0.81 m/s MV VTI 60.8 cm RVDd, 2D 2.3 cm (1.9cm - 3.8cm) MVA D (continuity eq.) 1.3 cm2 LADs, 2D 3.9 cm (3cm - 4cm) MV PGmax 10 mmHg Additional Vessels MV PGmean 4 mmHg Label Value Normal Value MV PHT 0.11 s AoRoot, MM 3.4 cm (2.2cm - 3.7cm) MVA PHT 2.1 cm2 MV PHT 106 ms TV/PV Label Value Normal Value RA Pressure 5 mmHg Patient: MERE RANDOLPH Study Date: 12/05/2018 Page 1 of 3 11:28 AM RVSP 26 mmHg TR Pmax 21 mmHg TR Vmax 2.29 m/s PV PGmax 4 mmHg PV Vmax, Caliper 1 m/s (0.6m/s - 0.9m/s) Conclusions 1. The left ventricle is normal in size and systolic function. No regional wall motion abnormalities. Ejection fraction is 60%. 2. The right ventricle is normal in size and systolic function. 3. Them left atrium is mildly dilated. 4. The mitral valve is status post repair. No regurgitation. Mean transmitral gradient is 4 mm Hg. 5. normal estimated PA systolic pressure. 6. No pericardial effusion. 7. Compared with 11/06/2018 the mitral valve has been repaired. Findings Left Ventricle: Left ventricle is normal in size. Normal global systolic left ventricular function. Left ventricle wall thickness is normal. There are no regional wall motion abnormalities. Diastolic Dysfunction is indeterminate. Right Ventricle: Normal size right ventricle. Right ventricular systolic function is normal. Left Atrium: The left atrium is mildly dilated. Right Atrium: The right atrium is borderline dilated. Mitral Valve: An annuloplasty ring is noted in the mitral valve position measuring 36 mm. The mitral valve prosthesis exhibits normal function. No MV prosthesis regurgitation. No prosthesis stenosis. Mitral Valve Measurements MV PGmax is 10 mmHg. MV PGmean is 4 mmHg. Aortic Valve: No significant aortic valve regurgitation. There is no aortic stenosis. The aortic valve is trileaflet. Tricuspid Valve: Tricuspid valve leaflets are normal in appearance and function. No significant tricuspid regurgitation. Right Ventricular systolic pressure is measured at 26 mmHg. Pulmonary artery pressure normal. Pulmonic Valve: No pulmonic valve regurgitation is evident. Aorta: The aorta is normal. The aortic root size in M-mode measures 3.4 cm. Aorta Measurements AoRoot, MM is 3.4 cm. Pericardium: No pericardial effusion. Exam Details Procedure Ordered: Echo (No Signature Object) Patient: MERE RANDOLPH Study Date: 12/05/2018 Page 2 of 3 11:28 AM Patient: MERE RANDOLPH Study Date: 12/05/2018 Page 3 of 3 11:28 AM [id number]
[2018-12-05] MEDS: MELATONIN 3 MG TAB PO PRN (20:49)
[2018-12-06] MEDS: traMADol 50 MG TAB PO PRN ×2 (00:11→09:47)
--- NOTE | 2018-12-06 07:07 | SOAPPROG ---
SOAP Progress Note Assessment/Plan: POD #3: s/p robotic-assisted MV repair (36 mm annuloplasty ring, p2 resection, sliding leaflet plasty) Drummond's MV w severe regurgitation s/p repair - Anticoagulation with full dose ASA alone - Routine postop TTE with well-functioning MV Acute post-op blood loss anemia - Stable w/o the need for transfusions Diabetes, well-controlled by A1c 6.0% - Continue Metformin Right pleural effusion - s/p thoracentesis 400 mL - Small residual effusion - monitor DVT prophylaxis -SCDs only Disposition - PCU - Plan for home later today or tomorrow Subjective: Has some right-sided sharp pain this morning. Denies SOB. Objective: Vital Signs Temp Pulse Resp BP Pulse Ox 36.8 C 66 18 94/43 L 95 12/06/18 06:50 12/06/18 06:50 12/06/18 06:50 12/06/18 06:50 12/06/18 06:50 Laboratory Results 12/06/18 06:05 12/05/18 06:06 12/05/18 12/06/18 12/07/18 05:59 05:59 05:59 Intake Total 1492 250 Output Total 700 800 Balance 792 -550 Physical Exam - Physical Exam General Appearance: WD/WN, alert, no apparent distress EENT: No scleral icterus (R), No scleral icterus (L) Neck: normal inspection Respiratory: No respiratory distress Cardiac/Chest: regular rate, rhythm Abdomen: non-tender, soft, No distended Skin: normal color, warm/dry Extremities: No pedal edema Neuro/Psych: no motor/sensory deficits, alert, normal mood/affect, oriented x 3 ICD10 Worksheet Patient Problems: Problems Problem Status Onset Acute blood loss anemia Acute S/P MVR (mitral valve repair) Acute
[2018-12-06] MEDS: INSULIN REGULAR HUMAN 100 UNIT/ML UNIT SC SCH (07:17)
[2018-12-06] MEDS: SENNOSIDES/DOCUSATE SODIUM TAB PO SCH ×2 (09:47→21:02)
[2018-12-06] MEDS: metFORMIN HCL 500 MG TAB PO SCH (09:47)
[2018-12-06] MEDS: ASPIRIN 325 MG TAB PO SCH (09:47)
[2018-12-06] MEDS: PANTOPRAZOLE SODIUM 40 MG TAB PO SCH (09:48)
--- NOTE | 2018-12-06 10:46 | ASMTCMCOM ---
CM Note CM Note Notes: Chart reviewed. Patient is POD 2 s/p MVR. Cleared per therapies for dc to home with outpatient therapies. CM available should other needs arise. Plan: Dc independently when medically cleared for discharge. Date Signed: 12/06/2018 10:46 AM Electronically Signed By:Rahel Ventura RN
[2018-12-06] MEDS: SODIUM CL NASAL 45 ML BTL EACHNARE SCH ×2 (13:48→21:43)
[2018-12-06] MEDS ORDERED: PNEUMOC 13-VAL CONJ-DIP CRM/PF 0.5 ML SYR (PREVNAR 13) IM ONE (17:00)
[2018-12-06] MEDS: ACETAMINOPHEN 325 MG TAB PO PRN (17:23)
[2018-12-06] MEDS ORDERED: ATORVASTATIN CALCIUM 20 MG TAB PO SCH (21:00)
[2018-12-06] MEDS: MELATONIN 3 MG TAB PO PRN (21:02)
[2018-12-07] MEDS: traMADol 50 MG TAB PO PRN ×2 (05:28→12:21)
--- NOTE | 2018-12-07 07:10 | SOAPPROG ---
SOAP Progress Note Assessment/Plan: POD #4: s/p robotic-assisted MV repair (36 mm annuloplasty ring, p2 resection, sliding leaflet plasty) Drummond's MV w severe regurgitation s/p repair - Anticoagulation with full dose ASA alone - Routine postop TTE with well-functioning MV Acute post-op blood loss anemia - Stable w/o the need for transfusions - Hematocrit 23.4; asymptomatic except requiring low flow oxygen; plan to start iron supplementation Diabetes, well-controlled by A1c 6.0% - Continue Metformin Right pleural effusion - s/p thoracentesis 400 mL - Small residual effusion - monitor DVT prophylaxis -SCDs only Disposition - Plan for home later today with oxygen Subjective: Repeat CXR stable Objective: Vital Signs Temp Pulse Resp BP Pulse Ox 36.4 C 66 12 119/46 L 94 12/07/18 04:00 12/07/18 04:00 12/07/18 04:00 12/07/18 04:00 12/07/18 04:00 Laboratory Results 12/07/18 05:35 12/05/18 06:06 12/06/18 12/07/18 12/08/18 05:59 05:59 05:59 Intake Total 250 900 Output Total 800 250 Balance -550 650 - Physical Exam General Appearance: WD/WN, alert, no apparent distress EENT: No scleral icterus (R), No scleral icterus (L) Neck: normal inspection Respiratory: No respiratory distress, 1L Cardiac/Chest: regular rate, rhythm Abdomen: non-tender, soft, No distended Skin: normal color, warm/dry Extremities: trace edema Neuro/Psych: no motor/sensory deficits, alert ICD10 Worksheet Patient Problems: Problems Problem Status Onset Acute blood loss anemia Acute S/P MVR (mitral valve repair) Acute
[2018-12-07] MEDS ORDERED: FERROUS SULFATE 325 MG TAB PO SCH (09:00)
[2018-12-07] MEDS: PANTOPRAZOLE SODIUM 40 MG TAB PO SCH (09:30)
[2018-12-07] MEDS: ASPIRIN 325 MG TAB PO SCH (09:30)
[2018-12-07] MEDS: metFORMIN HCL 500 MG TAB PO SCH (09:30)
[2018-12-07] MEDS: SENNOSIDES/DOCUSATE SODIUM TAB PO SCH (09:30)
[2018-12-07] MEDS: SODIUM CL NASAL 45 ML BTL EACHNARE SCH (09:32)
--- NOTE | 2018-12-07 10:11 | PDHOMEO2F ---
Home Oxygen Face to Face Home Orders: I certify that a physician or a nurse practitioner or physician's licensed physical therapy assistant has had a erdg-pu-visy encounter with this patient on the date of this order due to the diagnosis listed, which relates to the primary reason the patient requires home oxygen. Alternative treatments have been tried, or considered, and deemed ineffective. It is anticipated that supplemental oxygen will result in improvement with treatment. Home oxygen qualifying diagnosis: s/p MVR SpO2 on room air (%): 87 Frequency of home oxygen needed: continuous Home oxygen liters per minute: 1-2 Home oxygen delivery device: nasal cannula Concentrator: Yes E-tanks for mobility and back up: Yes If ordering portable O2, is the patient mobile in the home?: Yes I certify that, based on these findings, the home oxygen is medically necessary for this patient for the following length of time. Length of time home oxygen needed: 1 month
--- NOTE | 2018-12-07 10:57 | PDDCSUM ---
Discharge Summary Discharge Summary: DATE OF ADMISSION: 12/03/18 DATE OF DISCHARGE: 12/07/18 DISPOSITION: Home with oxygen ACTIVITY: Instructed on sternal precautions, activity restrictions, and problems to call [employer]. ADMISSION DIAGNOSES: Barlows mitral valve with severe regurgitation Mild pulmonary hypertension Hypertension Hyperlipidemia Diabetes, controlled DISCHARGE DIAGNOSES: As above, plus Acute blood loss anemia Right pleural effusion s/p thoracentesis PROCEDURES PERFORMED: 12/03/18 (W[place]lao) Robotic assisted MVRepair with P2 resection and reconstruction with 36mm Physio annuloplasty ring 12/05/18 Right thoracentesis, 400 cc, incomplete evacuation HISTORY OF PRESENT ILLNESS: This is a pleasant 73M admitted for elective mitral valve repair. HOSPITAL COURSE BY PROBLEM LIST: Drummond's MV w severe regurgitation s/p repair - Pre-op EF low normal without CAD. Amenable to repair. Anticoagulation with full dose ASA alone. Routine postop TTE with well-functioning MV. Acute post-op blood loss anemia - No transfusions required. H/H 8.0/23.4 at discharge. Asymptomatic with no signs of active bleeding. Sent home on iron supplementation with plans to recheck CBC next week. Diabetes - Well-controlled by A1c 6.0%. Transitioned from insulin drip to home metformin. Right pleural effusion s/p thoracentesis - 400 mL removed with incomplete evacuation. Follow-up CXR stable. Plan to recheck next week. PERTINENT DISCHARGE CLINICAL INFORMATION: Right thoracotomy, bilat groin incisions CDI, no erythema NSR HR 69 BP 107/49 SpO2 87-90 RA preop wt 73 kg, discharge wt 73 kg WBC 9 Hgb 8 Hct 23.4 Plt 136 Na 136 K 4.1 Cr 0.8 CONSULTANTS: [facility], Interventional Radiology MEDICATIONS ON ADMISSION: Reviewed in [employer] ALLERGIES/SENSITIVITIES: NKDA DISCHARGE MEDICATIONS: CONTINUE these medications: Supplements, Metformin, Lipitor STOP these medications: Lisinopril, Norvasc, ASA 81 NEW medications: ASA 325 mg PO daily, Ferrous 325 mg PO daily, Tylenol prn, Tramadol prn, Senokot prn, Miralax prn FOLLOW UP APPOINTMENTS: CV surgery, Dr. Billy, as directed Cardiology, Dr. Gonsalez, as directed PCP, as directed FOLLOW UP TESTING: CXR & CBC next week to eval right pleural effusion and anemia Another CXR prior to surgical appointment on December 18
--- NOTE | 2018-12-07 11:09 | ASMTLACE ---
LACE Length of stay for Answers: 4-6 days current admission Acuity / Level of Answers: Yes Care: Did the patient have an inpatient admission? Comorbidities - select Answers: Opioid dependence all that apply / Chronic pain Other Notes: HTN; Pre-diabetic # of Emergency department Answers: 0 visits in the last 6 months Score: 12 Date Signed: 12/07/2018 11:08 AM Electronically Signed By:Rahel Ventura RN
--- NOTE | 2018-12-07 11:20 | ASMTDCNOTE ---
Case Management Discharge Discharge Order Complete? Answers: Yes Patient to Obtain Answers: via Family Medications Transportation Arranged Answers: Family/Friends Family Notified Answers: Yes Discharge Comments Notes: Medically cleared for discharge to home with home oxygen. No other needs at this time. CM available should needs arise. Date Signed: 12/07/2018 11:19 AM Electronically Signed By:Rahel Ventura RN
[2018-12-07 12:10] VITALS: BP 107/49
--- NOTE | 2018-12-09 13:26 | CPEKG ---
Test Reason : OPEN Blood Pressure : / mmHG Vent. Rate : 064 BPM Atrial Rate : 064 BPM P-R Int : 181 ms QRS Dur : 145 ms QT Int : 482 ms P-R-T Axes : 076 212 027 degrees QTc Int : 498 ms Sinus rhythm Right bundle branch block Left posterior fascicular block Confirmed by Thad Carver ([id number]) on 12/09/2018 1:26:15 PM Referred By: Mehran Gonsalez Confirmed By:Thad Carver
== END 2018-12-07 13:15 | disposition home or self-care (01) | DRG 220 ==
LOC: F3E 06:11 → F2N 10:35 → F2W 12-05 13:34
PROVIDERS: ADMIT Thoracic Surgery (Cardiothoracic Vascular Surgery); ATTEND Thoracic Surgery (Cardiothoracic Vascular Surgery)
PROC: 8E0W0CZ Robotic Assisted Procedure of Trunk Region, Open Approach (ICD-10-PCS; principal; 2018-12-03 07:45)
PROC: 02BG0ZZ Excision of Mitral Valve, Open Approach (ICD-10-PCS; principal; 2018-12-03 07:45)
PROC: 02UG0JZ Supplement Mitral Valve with Synthetic Substitute, Open Approach (ICD-10-PCS; principal; 2018-12-03 07:45)
PROC: 0W9B3ZX Drainage of Left Pleural Cavity, Percutaneous Approach, Diagnostic (ICD-10-PCS; 2018-12-05)
DX: I34.1 Nonrheumatic mitral (valve) prolapse (principal); D62 Acute posthemorrhagic anemia; J90 Pleural effusion, not elsewhere classified; I27.20 Pulmonary hypertension, unspecified; E11.9 Type 2 diabetes mellitus without complications; I10 Essential (primary) hypertension; E78.5 Hyperlipidemia, unspecified
CPT/HCPCS: 82435-PO; 82565-PO; 82947-PO; 83605-ER; 84132-PO; 84295-PO; 84520-PO; 85014-ER; 97116-GP; 97162-GP; 97166-GO; 97530-GP; 97535-GO; C1768; J0153; J0282; J0690; J1170; J1250; J1265; J1644; J1815; J2001; J2150; J2250; J2260; J2370; J2704; J2720; J2765; J2930; J3010; J3475; J3480; P9041

== ENCOUNTER → 2018-12-11 | Outpatient (CLI) | payer OTHER | LOC: FIMAGING 08:05 | PROVIDERS: ATTEND Thoracic Surgery (Cardiothoracic Vascular Surgery) | DX: Z98.890 Other specified postprocedural states (principal); J90 Pleural effusion, not elsewhere classified; J98.11 Atelectasis ==

== ENCOUNTER → 2018-12-18 | Outpatient (CLI) | payer OTHER | LOC: FIMAGING 07:55 ==